=== PATIENT | female | born 1975 | race Caucasian/White ===

== ENCOUNTER 2022-07-18 20:55 | Emergency (ER) | payer SELFPAY ==
[~2022-07-18] VITALS: Ht 157.5 cm; Wt 70.0 kg
[2022-07-18 21:05] VITALS: BP 141/90
[2022-07-19 00:43] LABS: CHLORIDE 103 mEq/L (98-107)
[2022-07-19 00:48] LABS: BASOPHILS % 0.9 % (0.0-2.0); HEMATOCRIT. 32.4 % (36.0-48.0); HEMOGLOBIN. 10.2 g/dL (12.0-16.0); LYMPHOCYTES % 27.2 % (20.0-50.0); MEAN PLATELET VOLUME 7.8 fl (7.4-10.4); MONOCYTES % 11.5 % (2.0-8.0); NEUTROPHILS % 59.4 % (40.0-76.0); PLATELET 348 x1000/uL (130-400); RED BLOOD CELL COUNT 4.26 mill/uL (4.2-5.4); RED CELL DISTRIBUTION WIDTH 20.4 % (11.6-14.6)
[2022-07-19] MEDS ORDERED: FAMO-135 MT (02:00)
== END 2022-07-19 02:54 | disposition home or self-care (01) ==
LOC: ER 20:55
DX: R07.89 Other chest pain (principal)
CPT/HCPCS: 36415; 71045; 80053; 83880; 84484; 85025; 93005; 99285